=== PATIENT | female | born 1975 | race Caucasian/White ===

== ENCOUNTER 2019-11-06 11:55 | Emergency (ER) | payer BC ==
[2019-11-06 12:15] VITALS: BP 143/87
[2019-11-06] MEDS ORDERED: Cyclobenzaprine TAB* 10 MG PO ONE (12:31)
--- NOTE | 2019-11-06 12:34 | UC ---
Back Pain HPI - HPI Summary HPI Summary: 43-year-old woman comes in with a chief complaint of right-sided back pain. 6 days ago patient tripped and fell down 4 stairs. At that time the patient hurt her right elbow right mid back and right hip. Over time every gradually improved until she was completely pain free yesterday. Yesterday she practice some martial arts and was pain free during the practice however after the practice she had onset of pain in the right mid back where she had pain after the fall 6 days ago. Pain is worse with twisting turning bending and pushing on the area. Patient denies any shortness of breath or respiratory symptoms are concerned of a broken rib. Denies any anterior abdominal pain. Denies any hematuria. No difficulty with eating or drinking or bowels or bladder. No shortness of breath. Patient feels that she is having muscle spasms in the area. - History of Current Complaint Chief Complaint: UCBackPain Stated Complaint: BACK INJ Time Seen by Provider: 11/06/19 12:14 Hx Last Menstrual Period: n/a Pain Intensity: 8 - Allergies/Home Medications Allergies/Adverse Reactions: Allergies Allergy/AdvReac Type Severity Reaction Status Date / Time latex Allergy Itching Verified 11/06/19 12:08 Penicillins Allergy Unknown Verified 11/06/19 12:08 Reaction Details Home Medications: Home Medications Acetaminophen [Tylenol Extra Strength] 1,500 mg PO ONCE 11/06/19 [History Confirmed 11/06/19] Duloxetine HCl [Drizalma Sprinkle] 60 mg PO DAILY 11/06/19 [History Confirmed ] Ibuprofen TAB* [Advil TAB*] 3 tab PO ONCE 11/06/19 [History Confirmed 11/06/19] PMH/Surg Hx/FS Hx/Imm Hx Previously Healthy: Yes - Surgical History Surgical History: Yes Surgery Procedure, Year, and Place: complete hysterectomy 2011 - Family History Known Family History: Positive: None - Social History Alcohol Use: None Substance Use Type: None Smoking Status (MU): Never Smoked Tobacco - Immunization History Most Recent Influenza Vaccination: no Review of Systems All Other Systems Reviewed And Are Negative: Yes Constitutional: Positive: Negative Skin: Positive: Negative Eyes: Positive: Negative ENT: Positive: Negative Respiratory: Positive: Negative Cardiovascular: Positive: Negative Gastrointestinal: Positive: Negative Genitourinary: Positive: Negative Motor: Positive: Negative Neurovascular: Positive: Negative Musculoskeletal: Positive: Other: - SEE HPI Neurological: Positive: Negative Psychological: Positive: Negative Is Patient Immunocompromised?: No Physical Exam Triage Information Reviewed: Yes Appearance: Well-Appearing, Well-Nourished, Pain Distress - WITH ROM AND EXAM OF RIGHT BACK Vital Signs: Initial Vital Signs Temp 98 F 11/06/19 12:10 Pulse 68 11/06/19 12:10 Resp 18 11/06/19 12:10 BP 143/87 11/06/19 12:10 Pulse Ox 100 11/06/19 12:10 Vital Signs Reviewed: Yes Eye Exam: Normal Eyes: Positive: Conjunctiva Clear Neck: Positive: Supple Respiratory: Positive: Lungs clear, Normal breath sounds, No respiratory distress Cardiovascular: Positive: RRR Musculoskeletal: Positive: Other: - Patient is tender to palpation right lower chest a right flank area. She is nontender in the midline. Neurological: Positive: Alert Psychological: Positive: Age Appropriate Behavior Back Pain Course/Dx - Differential Dx/Diagnosis Provider Diagnosis: Mid back pain on right side Discharge ED - Sign-Out/Discharge Documenting (check all that apply): Patient Departure All imaging exams completed and their final reports reviewed: No Studies - Discharge Plan Condition: Stable Disposition: HOME Prescriptions: Cyclobenzaprine TAB* [Flexeril 10 MG TAB*] 10 mg PO TID PRN #15 tab MDD 3 PRN Reason: Pain - Moderate Patient Education Materials: Acute Low Back Pain (ED) Referrals: [facility] [place] [facility] [Outside] Sports Medicine Athletic [facility] [Provider Group] Additional Instructions: FOLLOW UP WITH YOUR PRIMARY CARE DOCTOR OR SPORTS MEDICINE IF NOT COMPLETELY IMPROVED. GET REEVALUATED SOONER IF NOT IMPROVING OR WORSE; PAIN, WEAKNESS, NUMBNESS, DIFFICULTY CONTROLLING BOWEL OR BLADDER, BLOOD IN YOUR URINE, YOU FEEL ILL OR ANY QUESTIONS OR CONCERNS. - Billing Disposition and Condition Condition: STABLE Disposition: Home
== END 2019-11-06 12:41 | disposition home or self-care (01) ==
LOC: UCCORT 11:55
DX: M54.89 Other dorsalgia (principal); Z91.040 Latex allergy status; Z88.0 Allergy status to penicillin
CPT/HCPCS: 99202; A9270-GY; G0463